=== PATIENT | female | born 1970 | race Caucasian/White ===

== ENCOUNTER → 2018-08-01 | Outpatient (CLI) | payer BC ==
[2017-09-06 22:55] VITALS: BP 117/67
[~2018-08-01] MED LIST: OXYC-327 PO; TAMS0.4C97 PO
--- NOTE | 2018-08-01 14:48 | RAD ---
Right Lower Extremity Venous Doppler Ultrasound Indication: Right lower extremity pain. Comparison: None. Procedure: Color Doppler, spectral Doppler, and grayscale images with and without compression are obtained in the area of the common femoral vein, superficial femoral vein - femoral vein junction, main femoral vein (superficial femoral vein) and popliteal vein. Veins of the proximal calf are also imaged. Findings: There is normal duplex flow, color flow and compressibility of all visualized vein segments. There is no evidence of deep venous thrombosis. Impression: No evidence of right lower extremity deep venous thrombosis. Electronically signed by: Leonardo Freitas MD (08/01/2018 2:44 PM) [place] [id number]
== END | disposition home or self-care (01) ==
LOC: US 13:48
PROVIDERS: ATTEND Internal Medicine Hematology & Oncology
DX: M79.604 Pain in right leg (principal); I10 Essential (primary) hypertension; Z87.442 Personal history of urinary calculi; Z85.09 Personal history of malignant neoplasm of other digestive organs; Z90.710 Acquired absence of both cervix and uterus; Z88.2 Allergy status to sulfonamides; Z88.1 Allergy status to other antibiotic agents; Z88.8 Allergy status to other drugs, medicaments and biological substances
CPT/HCPCS: 93971